=== PATIENT | female | born 1945 | race Caucasian/White ===

== ENCOUNTER → 2016-06-02 | Outpatient (CLI) | payer OTHER ==
[~2016-06-02] MED LIST: GADOBUTROL 10 ML VIAL IVP ONE
[2016-06-02 15:58] LABS: CREATININE 0.6 mg/dL (0.6-1.0); GLOMERULAR FILTRATION RATE > 60
--- NOTE | 2016-06-02 17:30 | MR ---
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 Technique: T1-weighted images were acquired axially and sagittally from the foramen magnum to the ve rtex. Axial fast T1-weighted, fast T2-weighted, entire brain images were obtained without contrast. Postcontrast axial images through the entire brain with the uneventful intravenous administration of 5 mL Gadavist contrast. Additional thin slice pre- and postcontrast axial T1-weighted imaging through the internal auditory canals and precontrast 3D FIESTA series. Findings: The ventricles, cisterns, and sulci are widening consistent with mild cerebral atrophy. Th roughout the white matter of bilateral cerebral hemispheres, there are multiple predominantly subcent imeter nonspecific hyperintense T2/FLAIR signal abnormalities without hemorrhage or mass effect. No h ydrocephalus, midline shift, herniation, or epidural/subdural hematomas. No intracranial hemorrhage o r masses. Cerebellar tonsils are in normal position. Pituitary gland is normal in size. Normal signal flow-void in the superior sagittal sinus, basilar artery, and bilateral internal carotid arteries in dicating patency. Postcontrast images demonstrate no right parietooccipital venous malformation. In t he left occipital lobe, there is a 10 x 3 mm linear subcortical enhancing lesion without associated T 2 or FLAIR edema. Bilateral internal auditory canals, cerebellopontine angle cisterns, VII and VIII c ranial nerve complexes demonstrate no abnormal enhancement, enhancing lesions, or masses. Impression: 1. Mild cerebral atrophy. 2. Multiple nonspecific hyperintense T2/FLAIR signal abnormalities in the white matter of bilateral c erebral hemispheres. Differential diagnosis includes moderate microvascular ischemic gliosis, versus less likely migraine-related sequela, atypical demyelinating disease, or postinfectious/post inflamma tory sequela. 3. No acute infarct, acute hemorrhage, hydrocephalus or mass effect. 4. Normal bilateral internal auditory canals without evidence of vestibular schwannoma/acoustic neuro ma or CP angle tumors. 5. Left occipital 10 x 3 mm nonspecific subcortical enhancing lesion without associated edema or mass effect. This may represent low-grade glioma or solid cortical metastasis, but has nonspecific charac teristics. Recommend follow up MRI brain without and with contrast imaging in one to two months. Cons ider further workup or neurosurgery consult. 6. Right parietooccipital benign venous malformation. A Follow-Up Required test result has been communicated via the [employer] | Critical Result syst em on 06/02/2016 17:19, Message ID [id number]."
== END ==
LOC: FIMAGING 14:55
DX: H90.5 Unspecified sensorineural hearing loss (principal); R94.02 Abnormal brain scan; Q28.3 Other malformations of cerebral vessels
CPT/HCPCS: 70553; A9585

== ENCOUNTER → 2016-09-06 | Outpatient (CLI) | payer OTHER ==
[2016-09-06 16:28] LABS: CREATININE 0.6 mg/dL (0.6-1.0); GLOMERULAR FILTRATION RATE > 60
== END ==
LOC: FIMAGING 15:28
PROVIDERS: ATTEND Neurological Surgery
DX: R90.89 Other abnormal findings on diagnostic imaging of central nervous system (principal)
CPT/HCPCS: 70553; A9585

== ENCOUNTER → 2016-12-06 | Outpatient (CLI) | payer OTHER | LOC: BMCIMAGING 13:40 | PROVIDERS: ATTEND Family Medicine | DX: Z12.31 Encounter for screening mammogram for malignant neoplasm of breast (principal) | CPT/HCPCS: G0202 ==